=== PATIENT | male | born 1995 | race Caucasian/White ===

== ENCOUNTER 2024-11-21 19:22 | Emergency (ER) | payer MEDICAID ==
[~2024-11-21] VITALS: Ht 170.2 cm; Wt 59.1 kg
[2024-11-21 19:38] VITALS: BP 111/59; PULSE 88; RESP 18; TEMP 97.8; O2SAT 99
== END 2024-11-21 22:20 | disposition left against medical advice (07) ==
LOC: EMS 19:26
DX: T23.121A Burn of first degree of single right finger (nail) except thumb, initial encounter (principal); Z53.21 Procedure and treatment not carried out due to patient leaving prior to being seen by health care provider